=== PATIENT | male | born 1925 | race Two or more races ===

== ENCOUNTER 2016-11-01 14:43 | Observation (INO) | payer OTHER ==
--- NOTE | 2016-11-01 15:12 | PDOC ---
Attending Attestation - Physicial Exam PE: 11/01/16 15:53 GENERAL: Awake, alert, and fully oriented, in no acute distress. Clammy. HEAD: No signs of trauma EYES: PERRLA, EOMI, sclera anicteric, conjunctiva clear ENT: Auricles normal inspection, hearing grossly normal, nares patent, oropharynx clear without exudates. Moist mucosa NECK: Normal ROM, supple, no lymphadenopathy, JVD, or masses LUNGS: Breath sounds equal, clear to auscultation bilaterally. No wheezes, and no crackles HEART: Regular rate and rhythm, normal S1 and S2, no murmurs, rubs or gallops ABDOMEN: Voluntary guarding. Diffuse tenderness, mainly around umbilical area. EXTREMITIES: Normal range of motion, no edema. No clubbing or cyanosis. No cords, erythema, or tenderness NEUROLOGICAL: Cranial nerves II through XII grossly intact. Normal speech, normal gait SKIN: Warm, Dry, normal turgor, no rashes or lesions noted. Documentation prepared by Toyin Ingram, acting as medical center director for Carmelina Hussein DO. <Toyin Ingram - Last Filed: 11/01/16 15:53> - Resident Resident Name: Janel Gillette - ED Attending Attestation I have performed the following: I have examined & evaluated the patient, The case was reviewed & discussed with the resident, I agree w/resident's findings & plan, Exceptions are as noted - HPI HPI: 11/01/16 16:00 89yo male returns to the ED for eval of abd pain. Pt seen in the ED earlier today for fecal impaction, given enema and had multiple bm in the ED. D/c home. Returns stating worsening abd pain and now with tenesmus and no bm. Denies n/v. Pt states sweating and abd pain. Pt appears uncomfortable. - Medical Decision Making 11/01/16 15:11 I, Dr. Carmelina Hussein DO, attest that this document has been prepared under my direction and personally reviewed by me in its entirety. I further attest, that it accurately reflects all work, treatment, procedures and medical decision -making performed by me. 11/01/16 16:01 89yo male with worsening abd pain despite having BM -diffusely tender abd -voluntary guarding -labs -ct abd/pelvis -ua -lactate -ivf hydration -pain control -reassess 11/01/16 17:07 pt pending labs, ct. pt signed out to the oncoming ED physician. <Carmelina Hussein - Last Filed: 11/01/16 17:07>
[2016-11-01 15:44] VITALS: BMI 22.6
[2016-11-01] MEDS ORDERED: SODIUM CHLORIDE 0.9% 1000 ML INFUS.BAG IV ONE (15:53)
[2016-11-01] MEDS ORDERED: morphine CARPU-JECT 2 MG/1 ML DISP.SYRIN IVPUSH ONE (15:54)
--- NOTE | 2016-11-01 16:17 | PDOC ---
History of Present Illness - General Chief Complaint: Pain Stated Complaint: PAIN History Source: Patient Exam Limitations: Language Barrier (historic interpreter phone used) - History of Present Illness Initial Comments: 89yo M with PMH of constipation, presents c/o abdominal pain. At this time pt c /o Left sideded abdominal pain, non-radiating, rated 6/10. Pt has hx of several visits to the ER for similar complaints, with most recent visit being this morning. Fleet enemas were given and pt had several bowel movements here. Pt was discharged with a prescription for Colace. Pt reports he was unable to go to the pharmacy to fill prescription because car dropped him off at his house. At home he went to the bathroom and began feeling diaphoretic, prompting him to come back to the ER. Upon discharge from the ER this time, pt intends to get prescription filled and to take the stool softener as prescribed. Pt now c/o having the urge to go, but only small amounts of watery stool comes out. 11/01/16 16:06 Associated Symptoms: reports: diaphoresis. denies: chest pain, cough, fever/ chills, headaches, nausea/vomiting, rash, shortness of breath, syncope Past History - Past Medical History Allergies/Adverse Reactions: Allergies Allergy/AdvReac Type Severity Reaction Status Date / Time Penicillins Allergy Severe Verified 11/01/16 15:02 Tetracyclines Allergy Severe Verified 11/01/16 15:02 ALL ANTIBIOTICS Allergy ANAPHYLAXIS Uncoded 11/01/16 15:02 Home Medications: Ambulatory Orders Docusate Sodium [Colace -] 100 mg PO DAILY #30 capsule 11/01/16 Anemia: No Suicide Attempt (Hx): No - Surgical History Abdominal Surgery: No - Immunization History Immunization Up to Date: Yes - Psycho/Social/Smoking Cessation Hx Anxiety: No Suicidal Ideation: No Smoking Status: No Smoking History: Never smoked Have you smoked in the past 12 months: No Number of Cigarettes Smoked Daily: 0 Hx Alcohol Use: No (denies) Drug/Substance Use Hx: No (denies) Substance Use Type: None Hx Substance Use Treatment: No Review of Systems - Review of Systems Constitutional: Yes: Diaphoresis, Weight Stable. No: Chills, Fever HEENTM: No: Recent change in vision, Ear Pain, Nose Pain, Throat Pain Respiratory: No: Cough, Shortness of Breath, Stridor, Wheezing Cardiac (ROS): No: Chest Pain, Edema, Irregular Heart Rate, Palpitations, Chest Tightness ABD/GI: Yes: Constipated. No: Abdominal Distended, Diarrhea, Nausea, Rectal Bleeding, Vomiting : No: Burning, Dysuria, Hematuria Musculoskeletal: No: Joint Pain, Muscle Pain Integumentary: No: Bruising, Lesions, Rash Neurological: No: Headache, Numbness, Paresthesia, Unsteady Gait *Physical Exam - Vital Signs Last Vital Signs Temp Pulse Resp BP Pulse Ox 98.5 F 84 17 148/72 98 11/01/16 14:58 11/01/16 14:58 11/01/16 14:58 11/01/16 14:58 11/01/16 14:58 - Physical Exam General Appearance: Yes: Nourished, Appropriately Dressed, Moderate Distress HEENT: positive: EOMI, Normal Voice, Other (dry mucous membranes). negative: Pale Conjunctivae, Scleral Icterus (R), Scleral Icterus (L), Rhinorrhea Neck: positive: Trachea midline, Supple Respiratory/Chest: positive: Lungs Clear, Normal Breath Sounds. negative: Respiratory Distress, Accessory Muscle Use Cardiovascular: positive: Regular Rhythm, Regular Rate, S1, S2. negative: Murmur Gastrointestinal/Abdominal: positive: Guarding, Tenderness (LUQ and LLQ to palpation). negative: Distended Musculoskeletal: positive: Normal Inspection. negative: Decreased Range of Motion Extremity: positive: Normal Inspection. negative: Swelling, Calf Tenderness, Erythema Integumentary: positive: Normal Color, Dry, Warm. negative: Diaphoresis Neurologic: positive: Fully Oriented, Alert, Normal Mood/Affect, Motor Strength 5/5 ED Treatment Course - LABORATORY CBC & Chemistry Diagram: 11/01/16 16:59 11/01/16 17:25 Medical Decision Making - Medical Decision Making 89yo M with PMH of constipation, presents c/o abdominal pain. Pt was last in ER this morning for similar complaints. Fleet enemas were given and pt had several bowel movements here. Pt was discharged with a prescription for Colace. Pt reports having allergy to all antibiotics, with the reaction being sudden . He reports that he was not planning on taking the prescribed Colace, because he has bad reactions to many medications. I assured pt that Colace is not an antibiotic and that he can take this medication. In fact, if he does not take Colace as prescribed he will continue to develop these symptoms of abdominal pain and constipation. I answered all of pt's questions and he verbalized understanding and agreement. He intends to fill prescription for Colace and take as directed upon discharge from ER this time. Because pt c/o diaphoresis earlier and is very tender to palpation on the LUQ and LLQ on exam, labs and CT ordered. CBC with diff, CMP, lipase, lactic acid, Mg UA CXR EKG CT ab/pelvis Morphine 2mg IVpush ordered for pain NS 1 L bolus given for dry mucous membranes 11/01/16 16:23 11/01/16 18:06 EKG -> NSR CBC with diff -> leukocytosis CMP -> BUN slightly elevated lactic acid -> wnl Mg -> wnl 11/01/16 18:36 Morphine not given. Upon reassessment pt experiencing less pain, can hold off on the Morphine for now. WBCs increased to 16.6 from 14.0 (earlier today), now with neutrophils of 87 also elevated. Allergy to "all antibiotics" noted. Levaquin 500mg IVPB ordered with Benadryl 25mg IVpush. Will closely monitor pt's reaction to Levaquin. 11/01/16 18:59 Case signed off to ER Resident Dr. Brown. *DC/Admit/Observation/Transfer Diagnosis at time of Disposition: Abdominal pain
[2016-11-01] MEDS ORDERED: morphine CARPU-JECT 2 MG/1 ML DISP.SYRIN ONE (16:43)
[2016-11-01 17:03] LABS: MCHC 34.1 g/dl (32.0-35.9); MEAN CELL VOLUME 93.8 fl (80-96); MEAN PLT VOLUME 9.1 fl (7.5-11.1); PLATELET COUNT 268 K/MM3 (134-434); RDW 13.4 % (11.9-15.9); WHITE BLOOD COUNT 16.6 K/mm3 (4.0-10.0)
[2016-11-01 17:50] LABS: PLATELET ESTIMATE ADEQUATE (NORMAL); TOTAL CELLS COUNTED 100
[2016-11-01 17:58] LABS: ALBUMIN 3.8 g/dl (3.4-5.0); ALK PHOS 74 U/L (45-117); ANION GAP 7 (8-16); BILIRUBIN,TOTAL 0.6 mg/dL (0.2-1.0); CALCIUM 9.3 mg/dL (8.5-10.1); CO2 28 mmol/L (21-32); GLUCOSE,RANDOM 117 mg/dL (74-106); MAGNESIUM 2.2 mg/dL (1.8-2.4); SGOT/AST 22 U/L (15-37); SGPT/ALT 19 U/L (12-78); TOT PROT 8.4 g/dl (6.4-8.2)
[2016-11-01] MEDS ORDERED: diphenhydrAMINE HCL 25 MG CAPSULE (FP) PO ONE (18:32)
[2016-11-01] MEDS ORDERED: LEVOFLOXACIN 500 MG IVPB 100 ML IVPB ONE ×2 (18:33→18:49)
--- NOTE | 2016-11-01 19:39 | PDOC ---
*Physical Exam - Vital Signs Last Vital Signs Temp Pulse Resp BP Pulse Ox 98.5 F 84 17 148/72 98 11/01/16 14:58 11/01/16 14:58 11/01/16 14:58 11/01/16 14:58 11/01/16 14:58 - Physical Exam Comments: 11/01/16 19:37 GENERAL: Awake, alert, and fully oriented, in no acute distress HEAD: No signs of trauma, normocephalic, atraumatic EYES: PERRLA, EOMI, sclera anicteric, conjunctiva clear ENT: Auricles normal inspection, hearing grossly normal, nares patent, oropharynx clear without exudates. Moist mucosa LUNGS: No distress, speaks full sentences, clear to auscultation bilaterally HEART: Regular rate and rhythm, normal S1 and S2, no murmurs, rubs or gallops, peripheral pulses normal and equal bilaterally. SKIN: Warm, Dry, normal turgor, no rashes or lesions noted. ED Treatment Course - LABORATORY CBC & Chemistry Diagram: 11/01/16 16:59 11/01/16 17:25 - ADDITIONAL ORDERS Additional order review: Laboratory Results 11/01/16 11/01/16 11/01/16 17:25 16:59 16:59 Sodium 140 Cancelled Potassium 4.2 Cancelled Chloride 105 Cancelled Carbon Dioxide 28 Cancelled Anion Gap 7 L Cancelled BUN 28 H Cancelled Creatinine 1.0 Cancelled Creat Clearance w eGFR > 60 Cancelled Random Glucose 117 H D Cancelled Lactic Acid 1.7 Calcium 9.3 Cancelled Magnesium 2.2 Cancelled Total Bilirubin 0.6 D Cancelled AST 22 D Cancelled ALT 19 Cancelled Alkaline Phosphatase 74 Cancelled Total Protein 8.4 H Cancelled Albumin 3.8 Cancelled Lipase 117 Cancelled 11/01/16 16:59 RBC 4.34 MCV 93.8 MCHC 34.1 RDW 13.4 MPV 9.1 Neutrophils % Y Lymphocytes % Y - Medications Given in the ED: ED Medications Discontinued Medications Generic Name Dose Route Start Last Admin Trade Name Freq PRN Reason Stop Dose Admin Diphenhydramine HCl 25 mg 11/01/16 18:32 11/01/16 18:55 Benadryl - PO 11/01/16 18:33 Not Given ONCE ONE Diphenhydramine HCl 25 mg 11/01/16 18:34 11/01/16 18:54 Benadryl Injection - IVPUSH 11/01/16 18:35 25 mg ONCE ONE Administration Levofloxacin 100 mls @ 100 mls/hr 11/01/16 18:33 11/01/16 18:54 Levaquin 500 Mg Premixed Ivpb - IVPB 11/01/16 19:32 100 mls/hr ONCE ONE Administration Morphine Sulfate 2 mg 11/01/16 15:54 11/01/16 18:30 Morphine Injection - IVPUSH 11/01/16 15:55 Not Given ONCE ONE Sodium Chloride 1,000 ml 11/01/16 15:53 11/01/16 17:23 Normal Saline - IV 11/01/16 15:54 1,000 ml ONCE ONE Administration Medical Decision Making - Medical Decision Making 11/01/16 19:[address] Kwong. Pending CT, CXR. Aware of supposed carrington-antibiotic allergy. Patient is resting comfortably after getting benadryl and levaquin. 11/01/16 19:40 CXR shows 1x1cm nodule in lower right lung field. No cardiomegaly, no fluid overload, no infiltrates. 11/01/16 21:39 CT shows evidence of colitis. Spoke with Dr Perea, admitted to med/surg obs under Dr Saini. *DC/Admit/Observation/Transfer Diagnosis at time of Disposition: Colitis Abdominal pain Qualifiers: Abdominal location: generalized Qualified Code(s): R10.84 - Generalized abdominal pain - Discharge Dispostion Condition at time of disposition: Good Admit: Yes
--- NOTE | 2016-11-01 21:08 | PDOC ---
*Physical Exam - Vital Signs Last Vital Signs Temp Pulse Resp BP Pulse Ox 98.4 F 88 16 130/77 100 11/01/16 19:31 11/01/16 19:31 11/01/16 19:31 11/01/16 19:31 11/01/16 19:31 ED Treatment Course - LABORATORY CBC & Chemistry Diagram: 11/01/16 16:59 11/01/16 17:25 - ADDITIONAL ORDERS Additional order review: Laboratory Results 11/01/16 11/01/16 11/01/16 17:25 16:59 16:59 Sodium 140 Cancelled Potassium 4.2 Cancelled Chloride 105 Cancelled Carbon Dioxide 28 Cancelled Anion Gap 7 L Cancelled BUN 28 H Cancelled Creatinine 1.0 Cancelled Creat Clearance w eGFR > 60 Cancelled Random Glucose 117 H D Cancelled Lactic Acid 1.7 Calcium 9.3 Cancelled Magnesium 2.2 Cancelled Total Bilirubin 0.6 D Cancelled AST 22 D Cancelled ALT 19 Cancelled Alkaline Phosphatase 74 Cancelled Total Protein 8.4 H Cancelled Albumin 3.8 Cancelled Lipase 117 Cancelled 11/01/16 16:59 RBC 4.34 MCV 93.8 MCHC 34.1 RDW 13.4 MPV 9.1 Neutrophils % Y Lymphocytes % Y - Medications Given in the ED: ED Medications Discontinued Medications Generic Name Dose Route Start Last Admin Trade Name Saúl PRN Reason Stop Dose Admin Diphenhydramine HCl 25 mg 11/01/16 18:32 11/01/16 18:55 Benadryl - PO 11/01/16 18:33 Not Given ONCE ONE Diphenhydramine HCl 25 mg 11/01/16 18:34 11/01/16 18:54 Benadryl Injection - IVPUSH 11/01/16 18:35 25 mg ONCE ONE Administration Levofloxacin 100 mls @ 100 mls/hr 11/01/16 18:33 11/01/16 18:54 Levaquin 500 Mg Premixed Ivpb - IVPB 11/01/16 19:32 100 mls/hr ONCE ONE Administration Morphine Sulfate 2 mg 11/01/16 15:54 11/01/16 18:30 Morphine Injection - IVPUSH 11/01/16 15:55 Not Given ONCE ONE Sodium Chloride 1,000 ml 11/01/16 15:53 11/01/16 17:23 Normal Saline - IV 11/01/16 15:54 1,000 ml ONCE ONE Administration Medical Decision Making - Medical Decision Making 11/01/16 21:06 Patient seen and evaluated with the resident. I agree with the overall evaluation, assessment, and management with the following summary of visit: Received signout on this 89-year-old male who presented with worsening abdominal pain in the setting of recent severe constipation, now on laxatives with bowel movements. Exam on arrival was notable for diffuse abdominal tenderness, now soft with some distention on my exam but diffusely tender. On review of workup so far, leukocytosis of 16 with 3 bands. Plan was to check CT of the abdomen and pelvis and reassess. In light of the patient's tenderness and new leukocytosis, we'll treat empirically with antibiotics. There is a vague note in the chart of ALLERGY to all antibiotics, he was given Levaquin and Benadryl and tolerated it well, a CAT scan subsequently showed some evidence of ileus with stercoral colitis, which fits the clinical picture. We will proceed with admission for IV antibiotics and serial abdominal exams, *DC/Admit/Observation/Transfer Diagnosis at time of Disposition: Colitis Abdominal pain Qualifiers: Abdominal location: generalized Qualified Code(s): R10.84 - Generalized abdominal pain
--- NOTE | 2016-11-01 22:10 | PN ---
Teaching Attending Note Name of Resident: David Moreland ATTENDING PHYSICIAN STATEMENT I saw and evaluated the patient. I reviewed the resident's note and discussed the case with the resident. I agree with the resident's findings and plan as documented. SUBJECTIVE: 89 year old male that presented to the ED this AM complaining of abdominal pain and constipation x 4 days. He was found to have fecal impaction, was given enema , had multiple bowel movements and was discharged home, however returns complaining of abdominal pain , 5/10 in intensity, tenesmus . OBJECTIVE: Vital Signs Temperature 98.4 F 11/01/16 19:31 Pulse Rate 88 11/01/16 19:31 Respiratory Rate 16 11/01/16 19:31 Blood Pressure 130/77 11/01/16 19:31 O2 Sat by Pulse Oximetry (%) 100 11/01/16 19:31 EYES: PERRLA, EOMI, sclera anicteric, conjunctiva clear ENT: Auricles normal inspection, hearing grossly normal, nares patent, oropharynx clear without exudates. Moist mucosa NECK: Normal ROM, supple, no lymphadenopathy, JVD, or masses LUNGS: Breath sounds equal, clear to auscultation bilaterally. No wheezes, and no crackles HEART: Regular rate and rhythm, normal S1 and S2, no murmurs, rubs or gallops ABDOMEN: Voluntary guarding. Diffuse tenderness, mainly around umbilical area. EXTREMITIES: Normal range of motion, no edema. No clubbing or cyanosis. No cords, erythema, or tenderness NEUROLOGICAL: Cranial nerves II through XII grossly intact. Normal speech, normal gait CBC, BMP 11/01/16 16:59 11/01/16 17:25 CT abdomen reviewed ASSESSMENT: 1. Abdominal pain 2. Chronic constipation 3. Suspected stercoral colitis 4. Prerenal azotemia 5. Pleural nodule PLAN 1. Pain control with tylenol PRN /avoid opioids 2. Milk of magnesia 3. Full liquid diet 4. Colace 5. Outpatient follow up regarding pulmonary nodule Observation
[2016-11-01] MEDS ORDERED: MAGNESIUM HYDROX 2400MG/30ML ORAL SUSPENSION 30 ML CUP PO ONE (22:19)
[2016-11-01] MEDS ORDERED: SODIUM CHLORIDE 1,000 ML IV SCH (22:30)
--- NOTE | 2016-11-01 22:38 | HP ---
CHIEF COMPLAINT: Abdominal Pain PCP: None HISTORY OF PRESENT ILLNESS: 89 y.o. M with pmh of constipation presenting with abdominal pain. Patient has left sided, 5/10, nonradiating abdominal pain. Patient has had multiple visits to the ED for constipation. Patient was seen this morning for similar complaints. He underwent fleet enema, had multiple BM, and was d/c with a rx for colace. Patient returned to the ED with worsening pain. Patient denies, fever, chills, N/V, chest pain, SOB ER course was notable for: (1) wbc- 16, BUN 28 (2) levaquin (3) Ct- abd- Trace amount of thrombus within the portal venous system, Mild dilatation of several proximal small bowel loops, rectum appears to demonstrate mild diffuse wall thickening suggestive of proctitis,Large hiatal hernia is noted which has increased in size comparison to a 2008 CT exam, interval resolution of intrapancreatic fluid collections is noted as well as resolution of peripancreatic edema/fluid, 1 cm RML subpleural opacity w/ two punctate internal cavities. Recent Travel: denies PAST MEDICAL HISTORY: Constipation PAST SURGICAL HISTORY: denies Social History: Smoking: denies, no prior Alcohol: denies Drugs: denies Patient lives at home alone and cooks for himself. He has 1 son who lives in [place] Family History: denies Allergies NKDA HOME MEDICATIONS: Home Medications Medication Instructions Recorded Docusate Sodium [Colace -] 100 mg PO DAILY #30 capsule 11/01/16 REVIEW OF SYSTEMS CONSTITUTIONAL: Absent: fever, chills, diaphoresis, generalized weakness, malaise, loss of appetite, weight change HEENT: Absent: rhinorrhea, nasal congestion, throat pain, throat swelling, difficulty swallowing, mouth swelling, ear pain, eye pain, visual changes CARDIOVASCULAR: Absent: chest pain, syncope, palpitations, irregular heart rate, lightheadedness , peripheral edema RESPIRATORY: Absent: cough, shortness of breath, dyspnea with exertion, orthopnea, wheezing, stridor, hemoptysis GASTROINTESTINAL: Absent: abdominal pain, abdominal distension, nausea, vomiting, diarrhea, constipation, melena, hematochezia GENITOURINARY: Absent: dysuria, frequency, urgency, hesitancy, hematuria, flank pain, genital pain MUSCULOSKELETAL: Absent: myalgia, arthralgia, joint swelling, back pain, neck pain SKIN: Absent: rash, itching, pallor HEMATOLOGIC/IMMUNOLOGIC: Absent: easy bleeding, easy bruising, lymphadenopathy, frequent infections ENDOCRINE: Absent: unexplained weight gain, unexplained weight loss, heat intolerance, cold intolerance NEUROLOGIC: Absent: headache, focal weakness or paresthesias, dizziness, unsteady gait, seizure, mental status changes, bladder or bowel incontinence PSYCHIATRIC: Absent: anxiety, depression, suicidal or homicidal ideation, hallucinations. PHYSICAL EXAMINATION GENERAL: Awake, alert, and fully oriented, in no acute distress. HEAD: Normal with no signs of trauma. EYES: Extraocular movements intact, sclera anicteric, conjunctiva clear. No lid lag. EARS, NOSE, THROAT: Oropharynx clear without exudates. Dry mucous membranes. NECK: Normal range of motion, supple without lymphadenopathy, JVD, or masses. LUNGS: Breath sounds equal, clear to auscultation bilaterally. No wheezes, and no crackles. No accessory muscle use. HEART: Regular rate and rhythm, normal S1 and S2 without murmur, rub or gallop. ABDOMEN: Soft, +Diffuse Tenderness to palpation, not distended, normoactive bowel sounds. Mild guarding MUSCULOSKELETAL: Normal range of motion at all joints. No bony deformities or tenderness. UPPER EXTREMITIES: 2+ pulses, warm, well-perfused. No cyanosis. No clubbing. No peripheral edema. LOWER EXTREMITIES: 2+ pulses, warm, well-perfused. No calf tenderness. No peripheral edema. NEUROLOGICAL: Cranial nerves II-XII intact. Normal speech. Normal gait. PSYCHIATRIC: Cooperative. Good eye contact. Appropriate mood and affect. SKIN: Warm, dry, normal turgor, no rashes or lesions noted, normal capillary refill. ASSESSMENT/PLAN: 89 y.o. M with pmh of constipation presenting with abdominal pain admitted for constipation. #Chronic Constipation -IVF NS @ 75 cc/hr -Soft diet -Milk of magnesia x1 -F/u #Health Maintanence, patient does not have pcp and has hx of DM and HTN -Lipid panel for AM -A1c for Am #FEN/GI -IVF NS @ 75 cc/hr -wnl -Soft diet #ppx -DVT- SCD's #Dispo -Med Surg Obs -Pt needs good bowel regimen Visit type - Emergency Visit Emergency Visit: Yes ED Registration Date: 11/01/16 Care time: The patient presented to the Emergency Department on the above date and was hospitalized for further evaluation of their emergent condition. - New Patient This patient is new to me today: Yes Date on this admission: 11/04/16 - Critical Care Critical Care patient: No
--- NOTE | 2016-11-02 00:11 | HP ---
CHIEF COMPLAINT: PCP: Doesn't have a PCP, says its easier for him to come to the ED than to go to the clinic. HISTORY OF PRESENT ILLNESS: Patient is a 89 year old portuguese speaking male with significant PMH of Constipation, Hypertension, Diabetes Mellitus presented to the ED via EMS with the chief complaints of abdominal pain. As per the patient, he didn't move his bowel for 4 days, came in to the ED this morning, was given Enema, had several bowel movements, was sent home on Colace. Patient didn't pecan picker colace. He continued to have abdominal pain and hence came in to the ED for further evaluation. He describes the pain to be located on the left side, crampy in nature, 5/10 in intensity, non radiating, not associated with nausea or vomiting. Patient mentions he had a colonoscopy done few years ago, but doesn't recall the results. Denies chest pain, sob, cough, palpitation, headache, dizziness. Bladder habit normal. Sleep normal. Patient lives alone, cooks by himself, doesn't drive. His son lives in [place]. Patient also mentions that he is allergic to all antibiotics, leading him to near . When asked his last intake of antibiotics and the side effects, he says he has never taken any antibiotics. ER course was notable for: (1) Afebrile, hemodynamically stable, WBC- 16, BUN 28; normal creatinine (2) CT abdomen/pelvis- Trace amount of thrombus within the portal venous system , Mild dilatation of several proximal small bowel loops, questionable proctitis. 1 cm RML subpleural opacity w/ two punctate internal cavities. (3) IV Levaquin Recent Travel: None PAST MEDICAL HISTORY: Constipation, Hypertension, Diabetes Mellitus PAST SURGICAL HISTORY:None Social History: Smoking: Denies Alcohol: Denies Drugs: Denies Family History: Unknown Allergies: None HOME MEDICATIONS: Home Medications Medication Instructions Recorded Docusate Sodium [Colace -] 100 mg PO DAILY #30 capsule 11/01/16 REVIEW OF SYSTEMS CONSTITUTIONAL: Absent: fever, chills, diaphoresis, generalized weakness, malaise, loss of appetite, weight change HEENT: Absent: rhinorrhea, nasal congestion, throat pain, throat swelling, difficulty swallowing, mouth swelling, ear pain, eye pain, visual changes CARDIOVASCULAR: Absent: chest pain, syncope, palpitations, irregular heart rate, lightheadedness , peripheral edema RESPIRATORY: Absent: cough, shortness of breath, dyspnea with exertion, orthopnea, wheezing, stridor, hemoptysis GASTROINTESTINAL: Absent: abdominal pain, abdominal distension, nausea, vomiting, diarrhea, constipation, melena, hematochezia GENITOURINARY: Absent: dysuria, frequency, urgency, hesitancy, hematuria, flank pain, genital pain MUSCULOSKELETAL: Absent: myalgia, arthralgia, joint swelling, back pain, neck pain SKIN: Absent: rash, itching, pallor HEMATOLOGIC/IMMUNOLOGIC: Absent: easy bleeding, easy bruising, lymphadenopathy, frequent infections ENDOCRINE: Absent: unexplained weight gain, unexplained weight loss, heat intolerance, cold intolerance NEUROLOGIC: Absent: headache, focal weakness or paresthesias, dizziness, unsteady gait, seizure, mental status changes, bladder or bowel incontinence PSYCHIATRIC: Absent: anxiety, depression, suicidal or homicidal ideation, hallucinations. PHYSICAL EXAMINATION GENERAL: Elderly male, Awake, alert, and fully oriented, in no acute distress. HEAD: Normal with no signs of trauma. EYES: EOM intact, no pallor or icterus. EARS, NOSE, THROAT: Ears normal. Moist mucous membranes. NECK: Supple. LUNGS: B/L Breath sounds equal, clear to auscultation bilaterally. No wheezes, and no crackles. No accessory muscle use. HEART: Regular rate and rhythm, normal S1 and S2 without murmur. ABDOMEN: Soft, diffusely tender in all quadrants but more on the left upper and right upper quadrants, not distended, normoactive bowel sounds, guarding +, no rebound, no masses. No hepatomegaly or splenomegaly. Digital per rectal exam: Denies MUSCULOSKELETAL: Normal range of motion at all joints. No bony deformities or tenderness. No CVA tenderness. UPPER EXTREMITIES: 2+ pulses, warm, well-perfused. No cyanosis. No clubbing. No peripheral edema. LOWER EXTREMITIES: 2+ pulses, warm, well-perfused. No calf tenderness. No peripheral edema. NEUROLOGICAL: No facial droop, Power 5/5 in all extremities, Cranial nerves II- XII intact. Normal speech. Gait not observed. PSYCHIATRIC: Cooperative. Good eye contact. Appropriate mood and affect. SKIN: Warm, dry, normal turgor, no rashes or lesions noted, normal capillary refill. CT abdomen/Pelvis 11/02/2016: Trace amount of thrombus within the portal venous system, Mild dilatation of several proximal small bowel loops, rectum appears to demonstrate mild diffuse wall thickening suggestive of proctitis,Large hiatal hernia is noted which has increased in size comparison to a 2008 CT exam , interval resolution of intrapancreatic fluid collections is noted as well as resolution of peripancreatic edema/fluid, 1 cm RML subpleural opacity w/ two punctate internal cavities. ASSESSMENT/PLAN: Patient is a 89 year old portuguese speaking female with significant PMH of Constipation, Hypertension, Diabetes Mellitus presented to the ED via EMS with the chief complaints of abdominal pain. # Chronic Constipation Didn't move bowels x 4 days, was seen in the ED, enema, colace was given sent home today but came back after several hours with abdominal pain. Afebrile, hemodynamically stable, per rectal exam denied. Leukocytosis of WBC- 16, could be reactive CT abdomen/Pelvis done, report as mentioned above. Placed on observation Continue IV NS @ 75 mls/hr Encourage plenty of oral fluids Milk of magnesemia # Right middle lobe cavities Incidental finding in Cat scan. Previously it was 0.8 cm which has increased to 1cm Doesn't have any pulmonary issues at this time. 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 # Hypertension- Stable Doesn't take any home meds, controlled with diet Lipid profile in am # Diabetes Mellitus Controlled with diet HbA1c ordered for am # FEN Continue IV NS @ 75mls/hr Electrolytes wnl, repeat tomorrow Soft diet # Prophylaxis For DVT: Ambulating, on scds For GI: Not indicated # Code Status: Full code # Dispo- Placed in Med Surg for Observation. Duration of stay 1-2 days. Illness, Investigation and Plan of care explained to the patient. He verbalized understanding. Case seen and discussed with Dr. Saini. Visit type - Emergency Visit Emergency Visit: Yes ED Registration Date: 11/01/16 Care time: The patient presented to the Emergency Department on the above date and was hospitalized for further evaluation of their emergent condition. - New Patient This patient is new to me today: Yes Date on this admission: 11/06/16 - Critical Care Critical Care patient: No
[2016-11-02 07:59] LABS: BASOPHIL 0.8 % (0-2.0); EOSINOPHIL 0.7 % (0-4.5); MCH 31.6 pg (25.7-33.7); MCHC 33.5 g/dl (32.0-35.9); MEAN CELL VOLUME 94.4 fl (80-96); MEAN PLT VOLUME 9.1 fl (7.5-11.1); NEUTROPHILS 66.9 % (42.8-82.8); PLATELET COUNT 239 K/MM3 (134-434); RDW 13.2 % (11.9-15.9)
[2016-11-02 08:31] LABS: CHOLESTEROL 152 mg/dL (50-200)
[2016-11-02 08:43] LABS: ALK PHOS 65 U/L (45-117); BILIRUBIN,TOTAL 0.8 mg/dL (0.2-1.0); CREATININE 0.9 mg/dL (0.7-1.3); SGOT/AST 20 U/L (15-37); SGPT/ALT 17 U/L (12-78)
[2016-11-02 09:37] LABS: ALBUMIN 3.2 g/dl (3.4-5.0); ANION GAP 7 (8-16); CALCIUM 8.5 mg/dL (8.5-10.1); CO2 27 mmol/L (21-32); GLUCOSE,RANDOM 81 mg/dL (74-106); TOT PROT 7.3 g/dl (6.4-8.2)
--- NOTE | 2016-11-02 09:45 | EKG ---
Test Reason : Blood Pressure : / mmHG Vent. Rate : 080 BPM Atrial Rate : 080 BPM P-R Int : 168 ms QRS Dur : 072 ms QT Int : 372 ms P-R-T Axes : 070 070 061 degrees QTc Int : 429 ms NORMAL SINUS RHYTHM WHEN COMPARED WITH ECG OF 01-NOV-2016 10:06, NO SIGNIFICANT CHANGE WAS FOUND Confirmed by OZZIE ADAMS MD ([id number]) on 11/02/2016 9:44:36 AM Referred By: Confirmed By:OZZIE ADAMS MD
--- NOTE | 2016-11-02 12:21 | DS ---
Physical Exam: SUBJECTIVE: Patient seen and examined. He had a bowel movement and he feels well denies pain and eager to leave. OBJECTIVE: Vital Signs Period Temp Pulse Resp BP Sys/Scruggs Pulse Ox Last 24 Hr 98.2 F-98.3 F 80-93 16-18 140-155/73-84 97-100 PE Neuro: alert, awake, cn 2-12intact Pulm: CTAB CV: s1 s2 rrr no mrg Abd: s nt nd + bs Ext: warm, no le edema Laboratory Results - last 24 hr 11/02/16 11/02/16 11/02/16 07:30 07:30 07:30 WBC 10.0 D RBC 4.12 Hgb 13.0 Hct 38.9 MCV 94.4 MCH 31.6 MCHC 33.5 RDW 13.2 Plt Count 239 MPV 9.1 Neutrophils % 66.9 Lymphocytes % 19.3 Monocytes % 12.3 H Eosinophils % 0.7 Basophils % 0.8 Sodium 141 Potassium 4.3 Chloride 107 Carbon Dioxide 27 Anion Gap 7 L BUN 16 D Creatinine 0.9 Creat Clearance w eGFR > 60 Random Glucose 81 D Hemoglobin A1c % Calcium 8.5 Total Bilirubin 0.8 D AST 20 ALT 17 Alkaline Phosphatase 65 Total Protein 7.3 Albumin 3.2 L Triglycerides 58 Cholesterol 152 Total LDL Cholesterol 95 HDL Cholesterol 48 11/02/16 07:30 Hemoglobin A1c % 5.6 HOSPITAL COURSE: Date of Admission:11/01/16 Date of Discharge: 11/02/16 Minutes to complete discharge: 37 Discharge Summary Reason For Visit: ABDOMINAL PAIN Current Active Problems Abdominal pain (Acute) Colitis (Acute) Hospital Course: Initial Hospital Course: Briefly, this 89 year old Frisian speaking male with significant PMH of Constipation, Hypertension, presented with abdominal pain. As per the patient, he didn't move his bowel for 4 days, came in to the ED this morning, was given Enema, had several bowel movements, was sent home on Colace. Patient didn't picker tender colace. He continued to have abdominal pain and hence came in to the ED for further evaluation. The pain was left sided, crampy in nature, 5/10 in intensity, non radiating, not associated with nausea or vomiting. Patient mentions he had a colonoscopy done few years ago, but doesn't recall the results. Patient also mentions that he is allergic to all antibiotics, leading him to near . When asked his last intake of antibiotics and the side effects, he says he has never taken any antibiotics. He tolerated x1 dose of 500mg IV levaquin without reaction Subsequent Hospital Course/Progress Note/Discharge Summary: Abdominal Pain - CTAP:Trace amount of thrombus within the portal venous system, Mild dilatation of several proximal small bowel loops, questionable proctitis. 1 cm RML subpleural opacity w/ two punctate internal cavities -Discussed findings of portal venous system with IR Dr. Mason, findings most likely perfusion and mixture of opacified and unopecified blood, suggest repeat portal vein ultra sound in 1 month Constipation - Resolved Will treat for possible proctitis 250mg levaquin x [address] chest for further eval of pulmonary nodules PCP appt made with Dr. baptiste 12/11 1500, Pulmonary appt with Dr. Cabrera 11/30 1330 DM II - no DM, hgb a1c 5.2 HTN - Stable Condition: Stable - Instructions Diet, Activity, Other Instructions: Please return to the ED for any new, persistent, or worsening symptoms. Please follow with primary care doctor on scheduled day, Dr Baptiste 12/11 at 3pm Follow up with Pulmonary Dr. Cabrera on 11/30 at 1:30pm Take antibiotics as directed and until completed In one month follow up with Dr. Baptiste for order of ultra sound of portal vein for follow up [facility] [phone] is also available for primary care visits and regular check ups Referrals: Joe Odell MD [Staff Physician] - 12/11/16 3:00 pm Christiano Cabrera MD, MD [Staff Physician] - 11/30/16 1:30 pm Disposition: HOME - Home Medications Comprehensive Discharge Medication List: Ambulatory Orders Docusate Sodium [Colace -] 100 mg PO DAILY #30 capsule 11/01/16 This patient is new to me today: Yes Date on this admission: 11/02/16 Emergency Visit: Yes ED Registration Date: 11/01/16 Care time: The patient presented to the Emergency Department on the above date and was hospitalized for further evaluation of their emergent condition. Critical Care patient: No - Discharge Referral Referred to [facility] Yes Physician Referral: Joe Lancaster MD ([facility])
[2016-11-02] MEDS ORDERED: LEVOFLOXACIN 500 MG TABLET (FP) PO ONE (12:50)
[2016-11-02] MEDS: LEVOFLOXACIN 250 MG TABLET (FP) PO ONE ×2 (14:01→14:40)
[2016-11-02 15:12] VITALS: BP 147/79; PULSE 79; TEMP 97.8
== END 2016-11-02 15:59 | disposition home or self-care (01) ==
LOC: JER 14:43 → JERBED 21:41 → J6S 22:35
PROVIDERS: ADMIT Internal Medicine; ATTEND Nurse Practitioner Acute Care
PROC: 3E03329 Introduction of Other Anti-infective into Peripheral Vein, Percutaneous Approach (ICD-10-PCS; principal; 2016-11-02)
PROC: 3E033GC Introduction of Other Therapeutic Substance into Peripheral Vein, Percutaneous Approach (ICD-10-PCS; 2016-11-02)
DX: K59.00 Constipation, unspecified (principal); K52.9 Noninfective gastroenteritis and colitis, unspecified; I10 Essential (primary) hypertension; Z86.39 Personal history of other endocrine, nutritional and metabolic disease; Z88.1 Allergy status to other antibiotic agents
CPT/HCPCS: 36415; 71010-TC; 71250-TC; 74177-TC; 80053; 80061; 83036; 83605; 83690; 83721; 83735; 84484; 85025; 93005; 93010; 99282-25; 99285-25; G0378